=== PATIENT | female | born 1955 | race Caucasian/White ===

== ENCOUNTER 2017-08-07 17:05 | Emergency (ER) | payer MEDICARE, MEDICAID ==
[~2017-08-07] VITALS: Ht 167.6 cm; Wt 58.0 kg
[~2017-08-07 17:05] MED LIST: DIPH-186 PO; FOLI1TAB16 PO; GABA-338 PO; LAMO25TA94 PO; MIRT15TA PO; NORCO10T PO; OXYC-145 PO
[2017-08-07] MEDS ORDERED: naproxen 500mg tablet PO ONE (17:20)
[2017-08-07 21:33] VITALS: BP 123/88
== END 2017-08-07 18:52 | disposition home or self-care (01) ==
LOC: ER 17:06
DX: S90.415A Abrasion, left lesser toe(s), initial encounter (principal); M54.2 Cervicalgia; F10.129 Alcohol abuse with intoxication, unspecified; G43.909 Migraine, unspecified, not intractable, without status migrainosus; G89.29 Other chronic pain; Z98.890 Other specified postprocedural states; Z79.899 Other long term (current) drug therapy; W01.0XXA Fall on same level from slipping, tripping and stumbling without subsequent striking against object, initial encounter; Y93.89 Activity, other specified; Y92.89 Other specified places as the place of occurrence of the external cause; Y99.8 Other external cause status; Y90.9 Presence of alcohol in blood, level not specified
CPT/HCPCS: 72040; 72125; 99284

== ENCOUNTER 2018-04-10 13:37 | Emergency (ER) | payer MEDICARE, MEDICAID ==
[~2018-04-10] VITALS: Ht 167.6 cm; Wt 56.0 kg
[2018-04-10 13:45] VITALS: BP 134/77
--- NOTE | 2018-04-10 13:49 | NUR ---
AFTER TRIAGE I TOLD THE PATIENT THAT SHE WOULD HAVE TO WAIT OUT IN THE LOBBY BUT THAT SHE WOULD BE SEEN SHORTLY IN OUR CLINICAL AREA. SHE WAS UNPLAESED AND TOLD HER SO THAT THEY WERE NOT GOING TO WAIT AND GOING TO [facility]. I WATCHED HER LEAVE LOBBY WITH BELONGINGS. SHE WAS ENCOURAGED TO WAIT AND THAT SHE WOULD BE SEEN BUT SHE WAS UNHAPPY.
== END 2018-04-10 13:52 | disposition left against medical advice (07) ==
LOC: ER 13:38
DX: F41.9 Anxiety disorder, unspecified (principal); Z53.21 Procedure and treatment not carried out due to patient leaving prior to being seen by health care provider

== ENCOUNTER 2018-09-29 18:01 | Emergency (ER) | payer MEDICAID, MEDICARE ==
[~2018-09-29] VITALS: Ht 167.6 cm; Wt 56.0 kg
[2018-09-29 18:04] VITALS: BP 117/69
== END 2018-09-29 20:20 | disposition left against medical advice (07) ==
LOC: ER 18:02
DX: N61.0 Mastitis without abscess (principal); R11.2 Nausea with vomiting, unspecified; R51 Headache; H92.09 Otalgia, unspecified ear; Z53.21 Procedure and treatment not carried out due to patient leaving prior to being seen by health care provider

== ENCOUNTER 2019-06-02 11:36 | Emergency (ER) | payer BC, OTHER ==
[~2019-06-02] VITALS: Ht 167.6 cm; Wt 54.5 kg
[~2019-06-02 11:36] MED LIST changes: +ALBU18HF2 INH; -DIPH-186 PO; +FLUT1BLS3 INH; -LAMO25TA94 PO; +LEVE500T PO; +MELO-102 PO; -MIRT15TA PO; -NORCO10T PO; -OXYC-145 PO; +SERT100T10 PO; +TRAZ-251 PO; +VARE1TAB22 PO; +VORT5TAB PO
[2019-06-02 11:37] VITALS: BP 117/54
[2019-06-02] MEDS ORDERED: predniSONE 20 mg tablet PO ONE (12:20)
[2019-06-02] MEDS ORDERED: benzonatate 100mg capsule PO ONE (12:20)
[2019-06-02] MEDS ORDERED: azithromycin 250mg tablet PO ONE (12:20)
[2019-06-02] MEDS ORDERED: BENZ-16 PO (12:25)
[2019-06-02] MEDS ORDERED: PRED20TA PO (12:25)
[2019-06-02] MEDS ORDERED: AZIT-63 PO (12:25)
== END 2019-06-02 12:33 | disposition home or self-care (01) ==
LOC: ER 11:36
DX: R05 Cough (principal); R06.02 Shortness of breath; G43.909 Migraine, unspecified, not intractable, without status migrainosus; G89.29 Other chronic pain; F41.9 Anxiety disorder, unspecified; F32.9 Major depressive disorder, single episode, unspecified; D64.9 Anemia, unspecified; Z79.899 Other long term (current) drug therapy
CPT/HCPCS: 99284; J7512